=== PATIENT | female | born 1955 | race Caucasian/White ===

== ENCOUNTER 2018-04-25 11:49 | Emergency (ER) | payer MEDICARE, BC ==
[~2018-04-25] VITALS: Ht 167.6 cm; Wt 65.8 kg
[2018-04-25] MEDS ORDERED: CRESTOR10 M2 ORAL (11:56)
[2018-04-25 12:15] VITALS: BP 113/78
[2018-04-25] MEDS ORDERED: Tetanus/Diptheria/Pertussis Vaccine 0.5ml Syr IM ONE (12:15)
--- NOTE | 2018-04-25 12:16 | Emergency Room Report ---
History of Present Illness General Chief Complaint: Head Injury Source: Patient Present Illness HPI Patient is a 63-year-old female who presented after head injury. Patient reportedly had been attempting to install Hamming. She reported hit to the head by a metal fastener. She denied loss of consciousness. She was noted to have some mild bleeding she denies recent tetanus vaccine. Allergies: Coded Allergies: No Known Allergies (Unverified , 04/25/18) Patient History Past Medical History: see triage record Last Menstrual Period: na Reviewed Nursing Documentation: PMH: Agreed; PSxH: Agreed Nursing Documentation-PMH Past Medical History: No History, Except For Review of Systems All Other Systems: negative except mentioned in HPI Physical Exam Vital Signs Date Time Temp Pulse Resp B/P (MAP) Pulse Ox O2 Delivery O2 Flow Rate FiO2 04/25/18 11:50 98.1 80 18 113/78 98 Room Air General Appearance: well appearing, no apparent distress, alert, GCS 15 Head: normocephalic, atraumatic ENT: hearing grossly normal, normal voice Neck: full range of motion, supple Respiratory: chest non-tender, lungs clear, normal breath sounds, no respiratory distress, speaking full sentences Musculoskeletal: no calf tenderness Neurologic: normal inspection, alert, oriented x3, normal gait Psychiatric: mood/affect normal Skin: no rash, other - vertex scalp abrasion Medical Decision Making Diagnostic Impression: Primary Impression: Scalp abrasion Additional Impression: Acute head injury ER Course Patient presented for head injury. The differential diagnosis included was not limited to fracture, intracranial hemorrhage, contusion among others.Because of complexity of patient's case imaging studies were ordered. The CT imaging of the head read by radiology showed no intracranial hemorrhage or fracture. The patient is advised to follow up with primary care doctor in 1- 2 days. Patient is advised to return if any worsening condition or if any changes in status that are concerning. This report is dictated with [employer] etiologist software which may occasionally lead to discrepancies related to use of this software. Last Vital Signs Date Time Temp Pulse Resp B/P (MAP) Pulse Ox O2 Delivery O2 Flow Rate FiO2 04/25/18 11:50 98.1 80 18 113/78 98 Room Air Status: improved Disposition: HOME, SELF-CARE Condition: Stable Scripts Bacitracin Zinc* (BACITRACIN ZINC*) 1 Each Packet 1 APPLIC TOPIC THREE TIMES A DAY, #20 PACKET Prov: Rylan Velasquez MD 04/25/18 Acetaminophen* (ACETAMINOPHEN EXTRA STRENGTH*) 500 Mg Tablet 500 MG ORAL Q8H PRN for Fever/Headache/Mild Pain, #30 TAB Prov: Rylan Velasquez MD 04/25/18 Rylan Velasquez MD Apr 25, 2018 12:16
[2018-04-25] MEDS ORDERED: Bacitracin Oint UD TOPIC ONE ×2 (12:56→13:15)
[2018-04-25] MEDS ORDERED: ACETAMINOPHEN500 M3 ORAL (13:06)
[2018-04-25] MEDS ORDERED: BACITRACIN ZIN1 EACH TOPIC (13:06)
--- NOTE | 2018-04-26 10:34 | Diagnostic Imaging Report ---
Indication: Pain Technique: Continuous helical CT scanning of the head was performed without intravenous contrast material. Axial and coronal 5 mm sections were generated. Radiation dose was minimized using automated exposure control Dose: Total Dose Length Product - DLP 1431.[address] Dose Index - CTDIvol(s) 70.38 mGy. Comparison: none Findings: The ventricular system is normal in size and configuration. There is no shift of midline structures. No abnormal extra-axial fluid collections are noted. There is no evidence of intracerebral bleeding. No other abnormal high or low density areas are noted within the brain. Normal mcguire-white differentiation. Intact calvarium. Visualized orbits and sinuses are unremarkable. Impression: Normal CT scan of the head without contrast material. This agrees with the preliminary interpretation provided overnight by [facility] service. The CT scanner at [facility] is accredited by the [employer] and the scans are performed using protocols designed to limit radiation exposure to as low as reasonably achievable to attain images of sufficient resolution adequate for diagnostic evaluation.
== END 2018-04-25 13:19 | disposition home or self-care (01) ==
LOC: EMR 12:25
DX: S00.01XA Abrasion of scalp, initial encounter (principal); S09.8XXA Other specified injuries of head, initial encounter; W22.8XXA Striking against or struck by other objects, initial encounter; Y92.9 Unspecified place or not applicable; Z23 Encounter for immunization
CPT/HCPCS: 70450; 90471; 90715; 99284